=== PATIENT | female | born 1985 | race Caucasian/White ===

== ENCOUNTER 2020-06-03 00:59 | Outpatient (CLI) | payer OTHER, SELFPAY ==
[2020-06-03 18:53] LABS: SARS-CoV-2 RNA PCR Negative
== END 2020-06-03 01:00 | disposition home or self-care (01) ==
LOC: ANHCOVIDDT 01:01
PROVIDERS: PCP Family Medicine; Visit Provider Otolaryngology
DX: Z01.812 Encounter for preprocedural laboratory examination (principal); Z20.828 Contact with and (suspected) exposure to other viral communicable diseases
CPT/HCPCS: 87635; C9803; U0003

== ENCOUNTER 2020-06-05 00:36 | Day surgery (SDC) | payer OTHER, SELFPAY ==
[2020-05-23 11:36] VITALS: BMI 22.9
--- NOTE | 2020-06-03 10:55 | PM.HPGS ---
History of Present Illness History of Present Illness Consent: Risks, benefits, and alternatives have been discussed and questions answered. Patient agrees to proceed with procedure. Chief complaint: chronic sinusitis Narrative: Tess Pittman is a 35 year old female 7 8 year history of chronic sinusitis pain years ear infections CAT scan was remarkably abnormal she is admitted for elective sinus surgery Review of Systems Review of Systems: All systems reviewed & are unremarkable except as noted in HPI and below PMFSH Social History Social History Smoking status: Never smoker Alcohol intake: current Drinks per week: 1 Substance use: never Spiritual care concerns: No Meds Home Medications and Allergies Home Medications Medication Instructions Recorded Confirmed Type desloratadine-pseudoephedrine ER 1 tablet PO Q12H PRN 09/03/19 05/23/20 History 2.5 mg-120 mg tab,ext.release mp 12hr fluticasone propionate 50 2 spray NASAL DAILY #18.2 ml 09/03/19 05/23/20 Rx mcg/actuation nasal spray,suspension rizatriptan 10 mg tablet 10 mg PO ONCE PRN 09/03/19 05/23/20 History fluconazole 150 mg tablet 150 mg PO WEEKLY 56 Days #8 tablet 05/05/20 05/23/20 Rx amoxicillin 250 mg capsule 250 mg PO Q12H 05/20/20 05/23/20 History levofloxacin 500 mg tablet 500 mg PO DAILY #10 tablet 05/20/20 05/23/20 Rx methylprednisolone 4 mg tablets in See Rx Instructions PO PER PKG DIR 05/20/20 05/23/20 Rx a dose pack #21 each multivitamin 1 tablet PO DAILY 05/23/20 05/23/20 History Allergies Allergy/AdvReac Type Severity Reaction Status Date / Time clindamycin Allergy Rash Unverified 05/23/20 11:37 Assessment and Plan Additional Plan bilateral maxillary antrostomy bilateral anterior posterior ethmoidectomy
[2020-06-05] VITALS (9 sets, daily range): BP systolic 113–138; BP diastolic 57–90; PULSE 57–74; RESP 12–16; TEMP 36.1–36.7; O2SAT 98–100
--- NOTE | 2020-06-05 06:08 | WPDHPUPDATE1 ---
History and Physical Update Update Date/Time: 06/05/20 06:08 History and Physical has been reviewed, including an updated exam of the patient. There are NO changes in the patient's condition. Risks, benefits, and alternatives have been discussed and questions answered. Patient agrees to proceed with procedure.
[2020-06-05] MEDS: ACETAMINOPHEN 500 MG TABLET 1000 MG PO (08:20)
[2020-06-05] MEDS: LACTATED RINGERS 1,000 ML 30 ML IV CONT (08:20)
--- NOTE | 2020-06-05 08:39 | P.PNAN_ITS ---
Anes - Initial Pre Proc Eval Procedure: Operation Date: 06/05/20 09:45 Proposed Procedures p Bilateral Maxillary Antrostomy, Anterior and Posterior Ethmoidectomy - Jose Tillman MD Date/Time: 06/05/20 08:39 Surgeon: Jose Tillman MD Pre Op Diagnosis: chronic sinusitis Patient Data Age: 35 Gender: F Height: 1.78 m Weight: 75.8 kg Last Vital Signs Temp 36.7 C 06/05/20 08:23 Pulse 74 06/05/20 08:23 Resp 16 06/05/20 08:23 BP 113/57 L 06/05/20 08:23 Pulse Ox 100 06/05/20 08:23 Allergies Allergy/AdvReac Type Severity Reaction Status Date / Time clindamycin Allergy Intermediate Rash Verified 06/05/20 08:19 Home Medications Medication Instructions Recorded Confirmed Type desloratadine-pseudoephedrine ER 1 tablet PO Q12H PRN 09/03/19 06/05/20 History 2.5 mg-120 mg tab,ext.release mp 12hr fluticasone propionate 50 2 spray NASAL DAILY #18.2 ml 09/03/19 06/05/20 Rx mcg/actuation nasal spray,suspension rizatriptan 10 mg tablet 10 mg PO ONCE PRN 09/03/19 06/05/20 History amoxicillin 250 mg capsule 250 mg PO Q12H 05/20/20 06/05/20 History levofloxacin 500 mg tablet 500 mg PO DAILY #10 tablet 05/20/20 06/05/20 Rx multivitamin 1 tablet PO DAILY 05/23/20 06/05/20 History Patient hx anesthesia problems: none Family hx anesthesia problems: none [facility] Past Medical History Medical History (Updated 06/05/20 @ 08:40 by Christopher Dallas MD) Allergies Chronic recurrent sinusitis Headache, migraine Social History Social History Smoking status: Never smoker Alcohol intake: current Drinks per week: 1 Substance use: never Spiritual care concerns: No Anes - Eval Final PreProcedure Day of Procedure 06/05/20 08:39 Patient weight: overweight Heart: regular rate and rhythm Lungs: clear to auscultation and normal air movement Airway: Mallampati scale class II Neurological: alert and oriented Last oral intake: >/= 8 hours ASA classification: II Emergent: no Anesthetic plan: proceed Anesthesia type and monitoring: general ETT Informed Consent: The patient's anesthetic plan and its attendant risks and benefits were discussed with the patient/family/POA. Questions were solicited and answers provided to the satisfaction of the patient/family/POA.
[2020-06-05] MEDS: LIDO 1%/EPINEPHRINE 1:100,000 20 ML VIAL 6 ML INFILTRATE (10:07)
[2020-06-05] MEDS: OXYMETAZOLINE HCL 0.05% NAS 15 ML BTL (*BKC) 1 SPRAY NASAL (10:09)
--- NOTE | 2020-06-05 10:25 | PM.PROC ---
Procedure Note - Detailed Date of procedure: 06/05/20 Pre-op diagnosis: chronic sinusitis chronic maxillary ethmoid sinusitis Post-op diagnosis: same Procedure performed: bilateral maxillary antrostomy bilateral anterior posterior ethmoidectomy Description of procedure: Patient prepped and draped in usual fashion after induction of general endotracheal anesthesia. The nose was packed with cocaine 4% impregnated cottonoids. Injected 1% xylocaine 1 to 132319 epinephrine. With the aid of the 0 degree endoscope on the right side the nose was inspected the middle turbinate was medialized and turbenectomy was done with the micro debrider the ethmoid bulla opened with microdebrider as was the basal lamella and the posterior ethmoid. The natural ostia of the maxillary sinus was opened and enlarged with microdebrider thickened mucous membrane lining was removed and then packed with a mature this procedure repeated on the other sinus with identical similar findings. Uncinectomy was done on both sides. The ethomoid bulla was opened with micro debrider thickened mucos membrane was removed. Was then packed with Surgicel. Patient awakened returned to recovery in good condition. Anesthesia: GLMA Surgeon: Jose Tillman MD Estimated blood loss (mL): 10 Drains: No Packing: Yes (Hemaderm) Pathology: none sent Complications: No immediate complications Condition: stable Disposition: PACU Findings: minimal thickening ethmoid sinus
--- NOTE | 2020-06-05 10:29 | PM.PROC ---
Procedure Note - Detailed Date of procedure: 06/05/20 Pre-op diagnosis: chronic sinusitis Procedure performed: SEPTOPLASTY/SINUS SURGERY POSTOPERATIVE DISCHARGE INSTRUCTIONS [facility] This is an information sheet to tell you some things to expect and some things not to expect when you leave the hospital after having sinus surgery. Please follow any specific instructions Dr. Weber has given you. 1. Sleeping/resting with your head slightly elevated the first 2-3 days after surgery helps reduce the amount of swelling that may occur. Two pillows usually provide the proper elevation. Try to avoid bending over, lifting, straining, coughing, blowing or sneezing through the nose, if possible during the first week after surgery. 2. Apply ice often during the first 48 hours. This will help control swelling and bleeding. 3. You may have some nasal congestion, stuffiness and a headache for up to 7-10 days following your surgery. You may also experience a sore throat. A room humidifier may help. If your headache is not controlled with pain medication, please contact Dr. Weber. 4. A nasal splint may have been placed in your nose. This has the consistency of a soft, flexible piece of plastic. The splint will be removed during your postoperative visit in one week. This splint may cause some discomfort, however pain medication has been prescribed to control this discomfort. 5. Some oozing of blood is normal and expected during the first 1-2 days after surgery. The small gauze bandage placed under the nose collects this drainage and should be changed as it becomes saturated. If nasal packing is present, it is to be left inside the nose and will be removed during your follow-up visit scheduled 1-2 days following surgery. If packing is not present, your first follow-up visit will be one week following surgery. Often times packing is dissolvable. 6. Do not use any aspirin or aspirin containing products, No Advil, No Aleve, No Ibuprofen, No Motrin or Motrin type products for two weeks after surgery. 7. Please change the nasal drip pad as needed over the next week. 8. Please take pain medication as prescribed. If this does not control your pain, please contact Dr. Weber. 9. Follow up with Dr. Weber in 1 week. Please call the office for your follow up appointment. Description of procedure: SEPTOPLASTY/SINUS SURGERY POSTOPERATIVE DISCHARGE INSTRUCTIONS [facility] This is an information sheet to tell you some things to expect and some things not to expect when you leave the hospital after having sinus surgery. Please follow any specific instructions Dr. Weber has given you. 1. Sleeping/resting with your head slightly elevated the first 2-3 days after surgery helps reduce the amount of swelling that may occur. Two pillows usually provide the proper elevation. Try to avoid bending over, lifting, straining, coughing, blowing or sneezing through the nose, if possible during the first week after surgery. 2. Apply ice often during the first 48 hours. This will help control swelling and bleeding. 3. You may have some nasal congestion, stuffiness and a headache for up to 7-10 days following your surgery. You may also experience a sore throat. A room humidifier may help. If your headache is not controlled with pain medication, please contact Dr. Weber. 4. A nasal splint may have been placed in your nose. This has the consistency of a soft, flexible piece of plastic. The splint will be removed during your postoperative visit in one week. This splint may cause some discomfort, however pain medication has been prescribed to control this discomfort. 5. Some oozing of blood is normal and expected during the first 1-2 days after surgery. The small gauze bandage placed under the nose collects this drainage and should be changed as it becomes sa
--- NOTE | 2020-06-05 13:36 | SUR.PHASEII ---
1240: Waiting for patient's mother to arrive for pick-up. Patient is getting dressed and unhooked from the monitors at this time since vitals were stable.
== END 2020-06-05 12:53 | disposition home or self-care (01) ==
PROVIDERS: PCP Family Medicine; Visit Provider Otolaryngology
PROC: (CPT 31255; principal; 2020-06-05 09:45)
DX: J32.0 Chronic maxillary sinusitis (principal); J32.2 Chronic ethmoidal sinusitis
CPT/HCPCS: 31255; 31256; A9270; J0330; J1100; J2250; J2405; J2704; J3010; J7120